=== PATIENT | male | born 1975 ===

== ENCOUNTER → 2018-04-14 20:35 | Outpatient (REF) | payer OTHER, SELFPAY ==
[2018-04-14 21:35] LABS: Add Manual Diff / Slide Review NO; Basophils Absolute Auto 100 /uL (0-100); Basophils Percent Auto 1.1 % (0-2); Eosinophils Absolute Auto 200 /uL (0-450); Eosinophils Percent Auto 3.1 % (2-4); Hematocrit 55.3 % (41-53); Hemoglobin 18.7 g/dL (13.5-17.5); Lymphocytes Absolute Auto 1400 /uL (1100-4500); Mean Corpuscular HGB Conc 33.8 % (30-36); Mean Corpuscular Hemoglobin 30.4 PG (26-34); Mean Corpuscular Volume 90.1 fL (80-100); Monocytes Absolute Auto 500 /uL (0-900); Monocytes Percent Auto 6.2 % (3-14); Neutrophils Absolute Auto 5200 /uL (1500-7000); Neutrophils Percent Auto 70.6 % (50-75); Platelet Count 233 X10^3/uL (150-400); Red Blood Cell Count 6.14 X10^6/uL (4.5-5.9); Red Cell Distribution Width 14.2 % (11.6-14.8); White Blood Cell Count 7.3 X10^3/uL (4.5-11.0)
[2018-04-14 21:50] LABS: Alanine Aminotransferase 44 IU/L (21-72); Albumin 4.9 g/dL (3.5-5.0); Albumin Globulin Ratio 1.5 (1.0-2.8); Alkaline Phosphatase 85 U/L (38-126); Aspartate Aminotransferase 40 IU/L (17-59); BUN Creatinine Ratio 20.7 (6-22); Bilirubin Total 1.1 mg/dL (0.2-1.3); Blood Urea Nitrogen 29 mg/dL (9-20); Calcium 10.1 mg/dL (8.4-10.2); Carbon Dioxide 28 mmol/L (22-32); Chloride 99 mmol/L (98-107); Cholesterol 198 mg/dL (140-199); Estimated Glomerular Filt Rate 55.8 mL/min (>60); Globulin 3.2 g/dL (1.7-4.1); Glucose 71 mg/dL (70-100); HDL Cholesterol 31 mg/dL (40-60); HEMOLYSIS 17 (0-50); LDL Cholesterol Calculated 119 mg/dL (<100); Sodium 140 mmol/L (137-145); Total Protein 8.1 g/dL (6.3-8.2); Triglycerides 241 mg/dL (35-150)
[2018-04-14 21:52] LABS: Potassium 5.6 mmol/L (3.4-5.1)
[2018-04-14 22:20] LABS: Ferritin 23.9 ng/mL (17.9-464)
[2018-04-14 22:25] LABS: TSH w/ Reflex to FT4 1.43 uIU/mL (0.47-4.68)
[2018-04-17 20:51] LABS: Estradiol 37 pg/mL (< 40)
== END ==
LOC: LAB 20:35
PROVIDERS: Visit Provider Naturopath
DX: Z00.00 Encounter for general adult medical examination without abnormal findings (principal)
CPT/HCPCS: 36415; 80053; 80061; 82670; 82728; 84443; 85025

== ENCOUNTER → 2018-04-27 21:49 | Outpatient (REF) | payer OTHER, SELFPAY ==
[2018-04-28 01:46] LABS: Alanine Aminotransferase 49 IU/L (21-72); Albumin 4.9 g/dL (3.5-5.0); Albumin Globulin Ratio 1.5 (1.0-2.8); Alkaline Phosphatase 107 U/L (38-126); Aspartate Aminotransferase 35 IU/L (17-59); BUN Creatinine Ratio 18.1 (6-22); Bilirubin Total 0.7 mg/dL (0.2-1.3); Blood Urea Nitrogen 29 mg/dL (9-20); Calcium 9.6 mg/dL (8.4-10.2); Carbon Dioxide 26 mmol/L (22-32); Chloride 102 mmol/L (98-107); Estimated Glomerular Filt Rate 47.9 mL/min (>60); Globulin 3.2 g/dL (1.7-4.1); Glucose 62 mg/dL (70-100); HEMOLYSIS < 15 (0-50); Potassium 4.3 mmol/L (3.4-5.1); Sodium 141 mmol/L (137-145); Total Protein 8.1 g/dL (6.3-8.2)
== END ==
LOC: LAB 21:49
PROVIDERS: Visit Provider Naturopath
DX: E87.5 Hyperkalemia (principal); Z13.89 Encounter for screening for other disorder
CPT/HCPCS: 36415; 80053